=== PATIENT | male | born 1960 | race Caucasian/White ===

== ENCOUNTER 2025-02-15 20:35 | Emergency (ER) | payer MEDICARE ==
[2025-02-15 21:56] VITALS: RESP 18; TEMP 96.5; O2SAT 97
[2025-02-15] MEDS ORDERED: DELTASONE 20 MG ONE (22:13)
[2025-02-15] MEDS: DELTASONE 20 MG PO ONE (22:14)
--- NOTE | 2025-02-15 22:33 | ERPHSYRPT ---
- History of Present Illness Time Seen by Provider: 02/15/25 21:43 Source: patient Exam Limitations: no limitations Patient Subjective Stated Complaint: pt states that he was bit by a spider 2 days ago Triage Nursing Assessment: pt ambulated into the er; pt is axo x4; c/o bug bite; pt states 3/10 [address] to rt hand; redness present to rt dorsal hand, along 1st and 2nd joint; warmth present to rt hand; swelling present to rt hand; hypertensive; pt states SOB, no distress present; hypertensive Physician History: 64 years old up-to-date with tetanus with history of hypertension, hyperlipidemia, diabetes mellitus [id number] presented in the ER with 2 days history of insect/spider bite on the right hand knuckles. Patient reports initially it was a burning sensation but now having some swelling and redness an d earlier was streaking which is improved. It is mildly painful with movements at metacarpophalangeal joints. No fever or chills reported. Allergies/Adverse Reactions: codeine Adverse Reaction (Verified 02/15/25 21:40) Vomiting Home Medications: Amlodipine/Atorvastatin [Amlodipine-Atorvast 10-20 mg] 1 each PO DAILY 02/15/25 [History] Doxazosin Mesylate 8 mg PO DAILY 02/15/25 [History] Hydrocodone/Acetaminophen [Hydrocodone-Acetamin 10-325 mg] 0.5 each PO BID PRN 02/15/25 [History] Metoprolol Succinate [Toprol Xl] 200 mg PO DAILY 02/15/25 [History] Tamsulosin HCl [Flomax] 0.4 mg PO DAILY 02/15/25 [History] Hx Tetanus, Diphtheria Vaccination/Date Given: No (unsure) Hx Influenza Vaccination/Date Given: No Hx Pneumococcal Vaccination/Date Given: No Travel Risk - International Travel Have you traveled outside of the country in past 3 weeks: No - Emerging Infectious Disease Are you exhibiting symptoms associated with any current EIDs: No - Review of Systems Constitutional: No Symptoms Ears, Nose, & Throat: No Symptoms Respiratory: No Symptoms Cardiac: No Symptoms Skin: Rash, Skin Lesions Neurological: No Symptoms Hematologic/Lymphatic: No Symptoms - Past Medical History Pertinent Past Medical History: Yes Neurological History: No Pertinent History ENT History: No Pertinent History Cardiac History: High Cholesterol, Hypertension, Myocardial Infarction (MS) Respiratory History: No Pertinent History Endocrine Medical History: Diabetes Type II Musculoskeletal History: Arthritis GI Medical History: No Pertinent History History: No Pertinent History Psycho-Social History: No Pertinent History Male Reproductive Disorders: Prostate Problems Other Medical History: PTSD - Past Surgical History Past Surgical History: Yes Neuro Surgical History: No Pertinent History Cardiac: Cardiac Stent Respiratory: No Pertinent History Gastrointestinal: No Pertinent History Genitourinary: No Pertinent History Musculoskeletal: Orthopedic Surgery Male Surgical History: No Pertinent History - Social History Smoking Status: Current some day smoker How long have you smoked: 44 Exposure to second hand smoke: Yes Drug Use: none - Social Determinants of Health Will the patient participate in the screening: Yes Do you worry about a steady place to live?: No Do you have any problems with any of the following?: No known problems In the past 12 months,have you had to go without utilities?: No Transportation Issues: No Has anyone in your support network made you feel unsafe?: No Have you or anyone in your house had to go w/o enough food: No - Nursing Vital Signs Nursing Vital Signs: Initial Vital Signs Temperature 96.5 F 02/15/25 21:45 Pulse Rate 62 02/15/25 21:45 Respiratory Rate 18 02/15/25 21:45 Blood Pressure 162/79 02/15/25 21:45 O2 Sat by Pulse Oximetry 97 02/15/25 21:45 Pain Scale Pain Intensity 0 - Physical Exam General Appearance: no apparent distress Eye Exam: PERRL/EOMI Neck Exam: normal inspection, full range of motion Respiratory Exam: normal breath sounds, lungs clear Cardiovascular Exam: regular rate/rhythm, normal heart sounds Extremity Exam: inflammation (Mild inflammation at metacarpophalangeal joint of right hands 2nd and 3rd digit, blanchable, mild increased temperature, intact distal neurovascular. No streaking.), swelling Neurologic Exam: alert, oriented x 3, cooperative Skin Exam: normal color SpO2 Interpretation: normal SpO2: 97 O2 Delivery: Room Air Ordered Tests: Medication Summary Discontinued Medications Generic Name Dose Route Start Last Admin Trade Name Freq PRN Reason Stop Dose Admin Prednisone 60 mg 02/15/25 22:04 02/15/25 22:14 Prednisone 20 Mg Tablet PO 02/15/25 22:05 60 mg STAT ONE Administration Prednisone Confirm 02/15/25 22:13 Prednisone 20 Mg Tablet Administered 02/15/25 22:14 Dose 60 mg .ROUTE .STK-MED ONE - Progress Progress: unchanged Progress Note: 02/15/25 22:31 Differential diagnosis: Spider bite, cellulitis, abscess 64 years old is evaluated in the ER for right hand knuckle area insect bite 2 days ago with progressively swelling and redness with some itching burning and dull aching pain. Patient has intact distal neurovascular. He is up-to-date with tetanus. No streaking, he is given prednisone in here and will continue to go home. Do not think patient needs antibiotic. Discussed signs symptoms of worsening needing return to ER which he seems understanding. Stable for discharge. Complexity of problems addressed: Acute mild Complexity of data reviewed/analyzed: Limited, Risk of complication, low Counseled pt/family regarding: diagnosis, need for follow-up Medical Desision Making - Diagnostic Testing Diagnostic test were ordered, analyzed, and reviewed by me: No - Risk of complications The pt has a mod risk of morbidity or mortality based on: Need for prescription drug management - Departure Departure Disposition: Home Clinical Impression: Spider bite Condition: Stable Critical Care Time: No Referrals: RICARDO VELEZ MD [ACTIVE STAFF, [facility]] - Follow up with PCP 1 day Referral Note: Call for appointment for reevaluation Instructions: Insect Bites and Stings (DC) Additional Instructions: Take Tylenol as needed. Follow-up with primary care for reevaluation. Return to ER for increasing pain swelling redness, difficulty movements of the fingers or if develop fever chills etc. Monitor your glucose regularly while being on steroids and may need to take extra dose of your medication if it is staying high and discussed with your primary care about that. Prescriptions: Prednisone 20 mg [Deltasone 20 mg] 60 mg PO DAILY 5 Days #15 tablet
[2025-02-15 23:04] VITALS: BP 166/88; PULSE 59
== END 2025-02-15 23:00 | disposition home or self-care (01) ==
LOC: ED 20:35
DX: S60.561A Insect bite (nonvenomous) of right hand, initial encounter (principal); W57.XXXA Bitten or stung by nonvenomous insect and other nonvenomous arthropods, initial encounter; Z79.52 Long term (current) use of systemic steroids; Z79.891 Long term (current) use of opiate analgesic; Z79.899 Other long term (current) drug therapy; Z72.0 Tobacco use
CPT/HCPCS: 99281; 99283; A9270-GY